=== PATIENT | male | born 1985 | race Caucasian/White ===

== ENCOUNTER → 2019-12-28 | Outpatient (CLI) | payer BC ==
--- NOTE | 2019-12-29 09:30 | ECGEPIP ---
[facility] Test Date: 2019-12-28 Pat Name: MARIUSZ BATEMAN Department: Room: - Gender: Male [employer]: : 1985 Requested By: Sylvester Champion Order Number: [id number] Reading MD: Pio Hansen Measurements Intervals [place] Rate: 54 P: 7 PA: 148 QRS: 40 QRSD: 120 T: 23 QT: 412 QTc: 392 Interpretive Statements Sinus bradycardia Incomplete RBBB Not definitely outside normal limits for age alone Electronically Signed on 12-29-2019 9:30:18 EST by Pio Hansen
== END ==
LOC: M EKG 09:22
PROVIDERS: ATTEND Psychiatry & Neurology Psychiatry
DX: I45.19 Other right bundle-branch block (principal); R00.1 Bradycardia, unspecified; Z79.899 Other long term (current) drug therapy

== ENCOUNTER 2020-05-31 21:03 | Emergency (ER) | payer BC ==
[~2020-05-31] VITALS: Ht 172.7 cm; Wt 83.9 kg
[2020-05-31] MEDS ORDERED: ADDE20TA PO (21:16)
[2020-05-31] MEDS ORDERED: AUGMENTIN 875 MG TAB PO ONE (22:40)
[2020-05-31] MEDS ORDERED: AUGM875T28 PO (22:48)
[2020-05-31 23:02] VITALS: BP 133/92
== END 2020-05-31 23:03 | disposition home or self-care (01) ==
LOC: M ED 21:03
DX: L03.031 Cellulitis of right toe (principal); L60.0 Ingrowing nail